=== PATIENT | male | born 1970 | race Caucasian/White ===

== ENCOUNTER 2021-03-08 06:35 | Day surgery (SDC) | payer MEDICARE ==
[2021-03-08] MEDS ORDERED: Depo-Medrol 40 MG/ML IM ONE (06:36)
[2021-03-08] MEDS ORDERED: LIDOCAINE HCL 2% 100 MG/5 ML IJ ONE (06:36)
[2021-03-08] MEDS ORDERED: Ketamine HCl 50 MG/ML ONE (08:48)
[2021-03-08] MEDS ORDERED: DIPRIVAN 200 MG/20 ML IV ONE (08:48)
--- NOTE | 2021-03-08 10:24 | XRAY ---
Indication: Bilateral L4-S1 MBB. Intraoperative fluoroscopy provided for 10 seconds. Single digital spot image submitted for interpretation demonstrates posterior needle tips projecting over the expected left and right L4-S1 nerve roots. Correlate with intraoperative findings/report.
[2021-03-08] MEDS ORDERED: Lactated Ringers 1,000 ML IV ONE (10:35)
--- NOTE | 2021-03-08 11:09 | XRAY ---
10 seconds fluoroscopy time in surgery for bilateral L4-S1 MBB.
== END 2021-03-08 09:08 | disposition home or self-care (01) ==
LOC: SDC-PAIN 06:35
PROVIDERS: ATTEND Psychiatry & Neurology Pain Medicine
DX: M47.816 Spondylosis without myelopathy or radiculopathy, lumbar region (principal); E11.9 Type 2 diabetes mellitus without complications; I10 Essential (primary) hypertension; Z79.899 Other long term (current) drug therapy
CPT/HCPCS: 64493; 64494; 72020; 77002; 82947; J1030; J2704

== ENCOUNTER 2021-04-05 06:44 | Day surgery (SDC) | payer MEDICARE ==
[2021-04-05] MEDS ORDERED: LIDOCAINE HCL 2% 100 MG/5 ML IJ ONE (06:45)
[2021-04-05] MEDS ORDERED: DIPRIVAN 200 MG/20 ML IV ONE (08:38)
--- NOTE | 2021-04-05 10:20 | XRAY ---
Indication: Bilateral L4-S1 MBB. Intraoperative fluoroscopy provided for 25 seconds. Single digital spot image submitted for interpretation demonstrates posterior needle tips projecting over the expected left and right L4-S1 nerve roots. Correlate with intraoperative findings/report.
--- NOTE | 2021-04-05 10:55 | XRAY ---
25 seconds fluoroscopy time in surgery for bilateral L4-S1 MBB.
[2021-04-05] MEDS ORDERED: Lactated Ringers 1,000 ML IV ONE (11:19)
== END 2021-04-05 09:08 | disposition home or self-care (01) ==
LOC: SDC-PAIN 06:44
PROVIDERS: ATTEND Psychiatry & Neurology Pain Medicine
DX: M47.816 Spondylosis without myelopathy or radiculopathy, lumbar region (principal); E11.9 Type 2 diabetes mellitus without complications; Z79.899 Other long term (current) drug therapy
CPT/HCPCS: 64493; 64494; 72020; 77002; 82947; J2704

== ENCOUNTER 2021-04-27 08:56 | Day surgery (SDC) | payer MEDICARE ==
[2021-04-27] MEDS ORDERED: Xylocaine 1% Vial 30 ML PF IJ ONE (08:57)
[2021-04-27] MEDS ORDERED: BUPIVACAINE 0.5% VIAL IJ ONE (08:57)
[2021-04-27] MEDS ORDERED: Depo-Medrol 40 MG/ML IM ONE (08:57)
[2021-04-27] MEDS ORDERED: Lactated Ringers 1,000 ML IV ONE (10:41)
[2021-04-27] MEDS ORDERED: DIPRIVAN 200 MG/20 ML IV ONE ×2 (11:09→11:23)
[2021-04-27] MEDS ORDERED: Versed 2 MG/2 ML Injection ONE (11:12)
--- NOTE | 2021-04-28 09:39 | XRAY ---
Indication: Left L4-S1 RFA. Intraoperative fluoroscopy provided for 32 seconds. 3 digital spot image submitted for interpretation demonstrates posterior needle tips projecting over the expected left L4-S1 nerve roots. Correlate with intraoperative findings/report.
--- NOTE | 2021-04-28 10:07 | XRAY ---
32 seconds of fluoroscopy was used in surgery for a left L4-S1 RFA.
== END 2021-04-27 11:43 | disposition home or self-care (01) ==
LOC: SDC-PAIN 08:56
PROVIDERS: ATTEND Psychiatry & Neurology Pain Medicine
DX: M47.816 Spondylosis without myelopathy or radiculopathy, lumbar region (principal); E11.9 Type 2 diabetes mellitus without complications; I10 Essential (primary) hypertension; Z79.899 Other long term (current) drug therapy
CPT/HCPCS: 64635; 64636; 72100; 77002; 82947; J1030; J2001; J2250; J2704

== ENCOUNTER 2021-05-03 09:06 | Day surgery (SDC) | payer MEDICARE ==
[2021-05-03] MEDS ORDERED: Xylocaine 1% Vial 30 ML PF IJ ONE (09:07)
[2021-05-03] MEDS ORDERED: Depo-Medrol 40 MG/ML IM ONE (09:07)
[2021-05-03] MEDS ORDERED: BUPIVACAINE 0.5% VIAL IJ ONE (09:07)
[2021-05-03] MEDS ORDERED: DIPRIVAN 200 MG/20 ML IV ONE ×2 (11:45→11:53)
[2021-05-03] MEDS ORDERED: Lactated Ringers 1,000 ML IV ONE (12:04)
--- NOTE | 2021-05-03 14:04 | XRAY ---
Indication: Right L4-S1 RFA. Intraoperative fluoroscopy provided for 27 seconds. 3 digital spot image submitted for interpretation demonstrates posterior needle tips projecting over the expected right L4-S1 nerve roots. Correlate with intraoperative findings/report.
--- NOTE | 2021-05-03 14:39 | XRAY ---
27 seconds fluoroscopy time in surgery for right L4-S1 RFA.
== END 2021-05-03 12:20 | disposition home or self-care (01) ==
LOC: SDC-PAIN 09:06
PROVIDERS: ATTEND Psychiatry & Neurology Pain Medicine
DX: M47.816 Spondylosis without myelopathy or radiculopathy, lumbar region (principal); E11.9 Type 2 diabetes mellitus without complications; Z79.899 Other long term (current) drug therapy
CPT/HCPCS: 64635; 64636; 72100; 77002; 82947; J1030; J2001; J2704

== ENCOUNTER 2021-05-31 06:24 | Day surgery (SDC) | payer MEDICARE ==
[2021-05-31] MEDS ORDERED: Decadron 4 MG INJ IV ONE (06:25)
[2021-05-31] MEDS ORDERED: LIDOCAINE HCL 2% 100 MG/5 ML IJ ONE (06:25)
[2021-05-31] MEDS ORDERED: Lactated Ringers 1,000 ML IV ONE (08:16)
[2021-05-31] MEDS ORDERED: DIPRIVAN 200 MG/20 ML IV ONE ×2 (08:52→09:03)
--- NOTE | 2021-05-31 10:18 | XRAY ---
Indication: Left C2-C4 MBB. Intraoperative fluoroscopy provided for 38 seconds. 2 digital spot image submitted for interpretation demonstrates posterior needle tips projecting over the expected left C2-C4 nerve roots. Correlate with intraoperative findings/report.
--- NOTE | 2021-05-31 12:12 | XRAY ---
38 seconds fluoroscopy time in surgery for left C2-C4 MBB.
== END 2021-05-31 09:26 | disposition home or self-care (01) ==
LOC: SDC-PAIN 06:24
PROVIDERS: ATTEND Psychiatry & Neurology Pain Medicine
DX: M47.812 Spondylosis without myelopathy or radiculopathy, cervical region (principal); E11.9 Type 2 diabetes mellitus without complications; I10 Essential (primary) hypertension; Z79.899 Other long term (current) drug therapy
CPT/HCPCS: 64490; 64491; 72040; 77002; 82947; J1100; J2704

== ENCOUNTER 2021-09-27 10:49 | Day surgery (SDC) | payer MEDICARE ==
[2021-09-27] MEDS ORDERED: Depo-Medrol 40 MG/ML IM ONE (10:50)
[2021-09-27] MEDS ORDERED: Marcaine Mpf 0.5% Vial 30 Ml IJ ONE (10:50)
[2021-09-27] MEDS ORDERED: Lactated Ringers 1,000 ML IV ONE (10:50)
[2021-09-27] MEDS ORDERED: DIPRIVAN 200 MG/20 ML IV ONE ×2 (12:52→13:29)
[2021-09-27] MEDS ORDERED: Ketamine HCl 50 MG/ML ONE (13:19)
--- NOTE | 2021-09-27 16:08 | XRAY ---
Indication: Left C2-C4 MBB. Intraoperative fluoroscopy provided for 36 seconds. 2 digital spot image submitted for interpretation demonstrates posterior needle tips projecting over the expected left C2-C4 nerve roots. Correlate with intraoperative findings/report.
--- NOTE | 2021-09-27 16:31 | XRAY ---
36 seconds of fluoroscopy was used in surgery for a left C2-C4 MBB.
== END 2021-09-27 13:46 | disposition home or self-care (01) ==
LOC: SDC-PAIN 10:49
PROVIDERS: ATTEND Psychiatry & Neurology Pain Medicine
DX: M47.812 Spondylosis without myelopathy or radiculopathy, cervical region (principal); E11.9 Type 2 diabetes mellitus without complications; Z79.899 Other long term (current) drug therapy
CPT/HCPCS: 64490; 64491; 72040; 77002; 82947; J1030; J2704

== ENCOUNTER 2021-11-08 09:39 | Day surgery (SDC) | payer MEDICARE ==
[2021-11-08] MEDS ORDERED: XYLOCAINE-MPF 1% 5ML SDV IJ ONE (09:40)
[2021-11-08] MEDS ORDERED: Decadron 4 MG INJ IV ONE (09:40)
[2021-11-08] MEDS ORDERED: BUPIVACAINE 0.5% VIAL IJ ONE (09:40)
[2021-11-08] MEDS ORDERED: Lactated Ringers 1,000 ML IV ONE (10:31)
[2021-11-08] MEDS ORDERED: DIPRIVAN 200 MG/20 ML IV ONE ×2 (11:08→11:14)
--- NOTE | 2021-11-08 12:40 | XRAY ---
Indication: Left C2-C4 RFA. Intraoperative fluoroscopy provided for 42 seconds. 5 digital spot image submitted for interpretation demonstrates posterior needle tips projecting over the left C2-C4 nerve roots. Correlate with intraoperative findings/report.
--- NOTE | 2021-11-08 12:41 | XRAY ---
42 seconds of fluoroscopy was used in surgery for a left C2-C4 RFA.
== END 2021-11-08 11:45 | disposition home or self-care (01) ==
LOC: SDC-PAIN 09:39
PROVIDERS: ATTEND Psychiatry & Neurology Pain Medicine
DX: M47.812 Spondylosis without myelopathy or radiculopathy, cervical region (principal); E11.9 Type 2 diabetes mellitus without complications; Z79.899 Other long term (current) drug therapy
CPT/HCPCS: 01939; 64633; 64634; 72040; 77002; 82947; J1100; J2704

== ENCOUNTER 2021-12-13 09:49 | Day surgery (SDC) | payer MEDICARE ==
[2021-12-13] MEDS ORDERED: Decadron 4 MG INJ IV ONE (09:50)
[2021-12-13] MEDS ORDERED: LIDOCAINE HCL 2% 100 MG/5 ML IJ ONE (09:50)
[2021-12-13] MEDS ORDERED: Pepcid 20 MG VIAL IV SCH (10:21)
[2021-12-13] MEDS ORDERED: Pepcid 20 MG VIAL IV ONE (10:22)
[2021-12-13] MEDS ORDERED: DIPRIVAN 200 MG/20 ML IV ONE (11:19)
[2021-12-13] MEDS ORDERED: Lactated Ringers 1,000 ML IV ONE (11:28)
--- NOTE | 2021-12-13 12:11 | XRAY ---
Indication: Right C2-C4 MBB. Intraoperative fluoroscopy provided for 22 seconds. 2 digital spot image submitted for interpretation demonstrates posterior needle tips projecting over the expected right C2-C4 nerve roots. Correlate with intraoperative findings/report.
--- NOTE | 2021-12-13 12:25 | XRAY ---
22 seconds of fluoroscopy was used in surgery for a right C2-C4 MBB.
== END 2021-12-13 11:43 | disposition home or self-care (01) ==
LOC: SDC-PAIN 09:49
PROVIDERS: ATTEND Psychiatry & Neurology Pain Medicine
DX: M47.812 Spondylosis without myelopathy or radiculopathy, cervical region (principal); E11.9 Type 2 diabetes mellitus without complications; Z79.899 Other long term (current) drug therapy
CPT/HCPCS: 64490; 64491; 72040; 77002; 82947; J1100; J2704

== ENCOUNTER 2023-05-08 07:42 | Day surgery (SDC) | payer MEDICARE ==
[2023-05-08] MEDS ORDERED: Depo-Medrol 40 MG/ML IM ONE (07:43)
[2023-05-08] MEDS ORDERED: LIDOCAINE HCL 1% 50 MG/5 ML VL PF IJ ONE (07:43)
[2023-05-08] MEDS ORDERED: BUPIVACAINE 0.5% VIAL IJ ONE (07:43)
[2023-05-08] MEDS ORDERED: Pepcid 20 MG VIAL IV ONE (08:35)
[2023-05-08] MEDS ORDERED: DIPRIVAN 200 MG/20 ML IV ONE (09:42)
[2023-05-08] MEDS ORDERED: Versed 2 MG/2 ML Injection ONE (09:43)
[2023-05-08] MEDS ORDERED: SUBLIMAZE 100 MCG/2 ML ONE (09:49)
--- NOTE | 2023-05-08 10:22 | XRAY ---
Indication: Right L4-S1 RFA. Intraoperative fluoroscopy provided for 26 seconds. 3 digital spot image submitted for interpretation demonstrates posterior needle tips projecting over expected right L4-S1 nerve roots. Correlate with intraoperative findings/report.
--- NOTE | 2023-05-08 10:39 | XRAY ---
26 seconds of fluoroscopy was used in surgery for a right L4-S1 RFA.
[2023-05-08] MEDS ORDERED: Lactated Ringers 1,000 ML IV ONE (12:25)
== END 2023-05-08 10:22 | disposition home or self-care (01) ==
LOC: SDC-PAIN 07:42
PROVIDERS: ATTEND Psychiatry & Neurology Pain Medicine
DX: M47.816 Spondylosis without myelopathy or radiculopathy, lumbar region (principal); E11.9 Type 2 diabetes mellitus without complications
CPT/HCPCS: 64635; 64636; 72100; 77002; 82947; J1030; J2001; J2250; J2704; J3010

== ENCOUNTER 2023-05-15 08:00 | Day surgery (SDC) | payer MEDICARE ==
[2023-05-15] MEDS ORDERED: LIDOCAINE HCL 1% 50 MG/5 ML VL PF IJ ONE (08:01)
[2023-05-15] MEDS ORDERED: BUPIVACAINE 0.5% VIAL IJ ONE (08:01)
[2023-05-15] MEDS ORDERED: Depo-Medrol 40 MG/ML IM ONE (08:01)
[2023-05-15] MEDS ORDERED: Pepcid 20 MG VIAL IV ONE (09:17)
[2023-05-15] MEDS ORDERED: Reglan 10 MG/2 ML ONE (09:18)
[2023-05-15] MEDS ORDERED: DIPRIVAN 200 MG/20 ML IV ONE ×2 (10:50→11:06)
[2023-05-15] MEDS ORDERED: Versed 2 MG/2 ML Injection ONE ×2 (11:18→12:01)
[2023-05-15] MEDS ORDERED: Lactated Ringers 1,000 ML IV ONE (15:01)
--- NOTE | 2023-05-15 15:13 | XRAY ---
Indication: Left L4-S1 RFA. Intraoperative fluoroscopy provided for 16 seconds. 3 digital spot images submitted for interpretation demonstrates posterior needle tips projecting over the expected left L4-S1 nerve roots. Correlate with intraoperative findings/report.
--- NOTE | 2023-05-15 16:46 | XRAY ---
16 seconds of fluoroscopy was used in surgery for a left L4-S1 RFA.
== END 2023-05-15 11:28 | disposition home or self-care (01) ==
LOC: SDC-PAIN 08:00
PROVIDERS: ATTEND Psychiatry & Neurology Pain Medicine
DX: M47.816 Spondylosis without myelopathy or radiculopathy, lumbar region (principal); E11.9 Type 2 diabetes mellitus without complications
CPT/HCPCS: 64635; 64636; 72100; 77002; 82947; J1030; J2001; J2250; J2704

== ENCOUNTER 2023-10-16 06:53 | Day surgery (SDC) | payer MEDICARE ==
[2023-10-16] MEDS ORDERED: LIDOCAINE HCL 1% 50 MG/5 ML VL PF IJ ONE (06:54)
[2023-10-16] MEDS ORDERED: Decadron 4 MG INJ IV ONE (06:54)
[2023-10-16] MEDS ORDERED: BUPIVACAINE 0.5% VIAL IJ ONE (06:54)
[2023-10-16] MEDS ORDERED: DIPRIVAN 200 MG/20 ML IV ONE (08:13)
[2023-10-16] MEDS ORDERED: Lactated Ringers 1,000 ML IV ONE (09:25)
--- NOTE | 2023-10-16 10:08 | XRAY ---
Indication: Left C2-C4 RFA. Intraoperative fluoroscopy provided for 34 seconds. 3 digital spot images submitted for interpretation demonstrates posterior needle tips projecting over the expected left C2-C4 nerve roots. Correlate with intraoperative findings/report.
--- NOTE | 2023-10-16 10:54 | XRAY ---
34 seconds of fluoroscopy was used in surgery for a left C2-C4 RFA.
== END 2023-10-16 09:00 | disposition home or self-care (01) ==
LOC: SDC-PAIN 06:53
PROVIDERS: ATTEND Psychiatry & Neurology Pain Medicine
DX: M47.812 Spondylosis without myelopathy or radiculopathy, cervical region (principal); E11.9 Type 2 diabetes mellitus without complications
CPT/HCPCS: 64635; 64636; 72040; 77002; 82947; J1100; J2001; J2704

== ENCOUNTER 2023-11-14 06:59 | Day surgery (SDC) | payer MEDICARE ==
[2023-11-14] MEDS ORDERED: BUPIVACAINE 0.5% VIAL IJ ONE (07:00)
[2023-11-14] MEDS ORDERED: Decadron 4 MG INJ IV ONE (07:00)
[2023-11-14] MEDS ORDERED: Pepcid 20 MG VIAL IV ONE (07:54)
[2023-11-14] MEDS ORDERED: Reglan 10 MG/2 ML ONE (07:54)
[2023-11-14] MEDS ORDERED: DIPRIVAN 200 MG/20 ML IV ONE (08:26)
--- NOTE | 2023-11-14 09:22 | XRAY ---
20 seconds of fluoroscopy was used in surgery for a right C2-C4 MBB.
[2023-11-14] MEDS ORDERED: Lactated Ringers 1,000 ML IV ONE (10:05)
--- NOTE | 2023-11-14 10:06 | XRAY ---
Indication: Right C2-C4 MBB. Intraoperative fluoroscopy provided for 20 seconds. 2 digital spot images submitted for interpretation demonstrates posterior needle tips projecting over the expected right C2-C4 nerve roots. Correlate with intraoperative findings/report.
== END 2023-11-14 08:56 | disposition home or self-care (01) ==
LOC: SDC-PAIN 06:59
PROVIDERS: ATTEND Obstetrics & Gynecology Gynecologic Oncology
DX: M47.812 Spondylosis without myelopathy or radiculopathy, cervical region (principal); E11.9 Type 2 diabetes mellitus without complications
CPT/HCPCS: 64490; 64491; 72040; 77002; 82947; J1100; J2704

== ENCOUNTER 2023-12-25 07:14 | Day surgery (SDC) | payer MEDICARE ==
[2023-12-25] MEDS ORDERED: BUPIVACAINE 0.5% VIAL IJ ONE (07:15)
[2023-12-25] MEDS ORDERED: LIDOCAINE HCL 1% AMPUL 5 ML IJ ONE (07:15)
[2023-12-25] MEDS ORDERED: Decadron 4 MG INJ IV ONE (07:15)
[2023-12-25] MEDS ORDERED: Depo-Medrol 40 MG/ML IM ONE (07:15)
[2023-12-25] MEDS ORDERED: DIPRIVAN 200 MG/20 ML IV ONE ×2 (08:53→09:00)
[2023-12-25] MEDS ORDERED: MORPHINE SULFATE 2 MG INJ ONE (09:25)
--- NOTE | 2023-12-25 12:17 | XRAY ---
Indication: Right C2-C4 RFA. Intraoperative fluoroscopy provided for 23 seconds. 7 digital spot image submitted for interpretation demonstrates posterior needle tips projecting over the expected right C2-C4 nerve roots. Correlate with intraoperative findings/report.
--- NOTE | 2023-12-25 12:36 | XRAY ---
23 seconds of fluoroscopy was used in surgery for a right C2-C4 RFA.
== END 2023-12-25 10:05 | disposition home or self-care (01) ==
LOC: SDC-PAIN 07:14
PROVIDERS: ATTEND Psychiatry & Neurology Pain Medicine
DX: M47.812 Spondylosis without myelopathy or radiculopathy, cervical region (principal); E11.9 Type 2 diabetes mellitus without complications
CPT/HCPCS: 64633; 64634; 72040; 77002; 82947; J1100; J2270; J2704

== ENCOUNTER 2024-01-22 06:48 | Day surgery (SDC) | payer MEDICARE ==
[2024-01-22] MEDS ORDERED: Sodium Chloride 0.9(Preservative Free) 10 ML IJ ONE (06:49)
[2024-01-22] MEDS ORDERED: LIDOCAINE HCL 1% AMPUL 5 ML IJ ONE (06:49)
[2024-01-22] MEDS ORDERED: Decadron 4 MG INJ IV ONE (06:49)
[2024-01-22] MEDS ORDERED: DIPRIVAN 200 MG/20 ML IV ONE (08:35)
--- NOTE | 2024-01-22 13:01 | XRAY ---
Indication: Right L4-S1 transforaminal KARTIK. Intraoperative fluoroscopy provided for 27 seconds. 5 digital spot image submitted for interpretation demonstrates posterior needle tips projecting over expected right L4 and L5 nerve roots. Small amount of contrast injected for needle tip placement. Correlate with intraoperative findings/report.
--- NOTE | 2024-01-22 13:03 | XRAY ---
Indication: Right piriformis injection. Intraoperative fluoroscopy provided for 14 seconds. Single digital spot image submitted for interpretation demonstrates posterior needle tip projecting over right piriformis. Small amount of contrast injected for needle tip placement. Correlate with intraoperative findings/report.
--- NOTE | 2024-01-22 13:11 | XRAY ---
14 seconds of fluoroscopy was used in surgery for a right piriformis injection.
--- NOTE | 2024-01-22 13:11 | XRAY ---
27 seconds of fluoroscopy was used in surgery for a right L4-S1 transforaminal KARTIK.
== END 2024-01-22 09:15 | disposition home or self-care (01) ==
LOC: SDC-PAIN 06:48
PROVIDERS: ATTEND Psychiatry & Neurology Pain Medicine
DX: M54.16 Radiculopathy, lumbar region (principal); M79.18 Myalgia, other site; E11.9 Type 2 diabetes mellitus without complications
CPT/HCPCS: 20552; 64483; 64484; 72100; 72170; 77002; 77003; 82947; J1100; J2704; Q9966

== ENCOUNTER 2024-06-25 07:17 | Day surgery (SDC) | payer MEDICARE ==
[2024-06-25] MEDS ORDERED: LIDOCAINE HCL 1% AMPUL 5 ML IJ ONE (07:18)
[2024-06-25] MEDS ORDERED: Sodium Chloride 0.9(Preservative Free) 10 ML IJ ONE (07:18)
[2024-06-25] MEDS ORDERED: Depo-Medrol 40 MG/ML IM ONE (07:18)
[2024-06-25] MEDS ORDERED: propofoL IV ONE ×2 (08:57→09:02)
[2024-06-25] MEDS ORDERED: Lactated Ringers 1,000 ML IV ONE (10:00)
--- NOTE | 2024-06-25 10:38 | XRAY ---
Indication: Caudal KARTIK. Intraoperative fluoroscopy provided for 34 seconds. 4 digital spot image submitted for interpretation demonstrates caudal needle tip projecting mid sacrum. Small amount of contrast injected for needle tip placement. Correlate with intraoperative findings/report.
--- NOTE | 2024-06-25 10:52 | XRAY ---
34 seconds of fluoroscopy used in surgery for a caudal KARTIK.
== END 2024-06-25 09:38 | disposition home or self-care (01) ==
LOC: SDC-PAIN 07:17
PROVIDERS: ATTEND Psychiatry & Neurology Pain Medicine
DX: M54.16 Radiculopathy, lumbar region (principal); E11.9 Type 2 diabetes mellitus without complications
CPT/HCPCS: 62323; 72220; 82947; J2704; Q9966

== ENCOUNTER 2024-12-02 07:46 | Day surgery (SDC) | payer MEDICARE ==
[2024-12-02] MEDS ORDERED: BUPIVACAINE 0.5% VIAL IJ ONE (07:47)
[2024-12-02] MEDS ORDERED: methylPREDNISolone acetate IM ONE (07:47)
[2024-12-02] MEDS ORDERED: LIDOCAINE HCL 1% 50 MG/5 ML VL IJ ONE (07:47)
[2024-12-02] MEDS ORDERED: Lactated Ringers 1,000 ML IV ONE (09:56)
[2024-12-02] MEDS ORDERED: propofoL IV ONE ×2 (10:09→10:16)
[2024-12-02] MEDS ORDERED: SUBLIMAZE 100 MCG/2 ML ONE (10:16)
--- NOTE | 2024-12-02 13:03 | XRAY ---
Indication: Right L4-S1 RFA. Intraoperative fluoroscopy provided for 24 seconds. Single digital spot image submitted for interpretation demonstrates posterior needle tips projecting over expected right L4-S1 nerve roots. Correlate with intraoperative findings/report.
--- NOTE | 2024-12-02 13:07 | XRAY ---
24 seconds of fluoroscopy were used in surgery for a right L4-S1 RFA.
== END 2024-12-02 10:45 | disposition home or self-care (01) ==
LOC: SDC-PAIN 07:46
PROVIDERS: ATTEND Psychiatry & Neurology Pain Medicine
DX: M47.817 Spondylosis without myelopathy or radiculopathy, lumbosacral region (principal); E11.9 Type 2 diabetes mellitus without complications

== ENCOUNTER 2024-12-16 07:42 | Day surgery (SDC) | payer MEDICARE ==
[2024-12-16] MEDS ORDERED: methylPREDNISolone acetate IM ONE (07:43)
[2024-12-16] MEDS ORDERED: LIDOCAINE HCL 1% 50 MG/5 ML VL IJ ONE (07:43)
[2024-12-16] MEDS ORDERED: BUPIVACAINE 0.5% VIAL IJ ONE (07:43)
[2024-12-16] MEDS ORDERED: propofoL IV ONE (10:08)
[2024-12-16] MEDS ORDERED: Lactated Ringers 1,000 ML IV ONE (10:29)
--- NOTE | 2024-12-16 12:28 | XRAY ---
Indication: Left L4-S1 RFA. Intraoperative fluoroscopy provided for 17 seconds. 4 digital spot image submitted for interpretation demonstrates posterior needle tips projecting over expected left L4-S1 nerve roots. Correlate with intraoperative findings/report.
--- NOTE | 2024-12-16 12:48 | XRAY ---
17 seconds of fluoroscopy was used in surgery for a left L4-S1 RFA.
== END 2024-12-16 10:48 | disposition home or self-care (01) ==
LOC: SDC-PAIN 07:42
PROVIDERS: ATTEND Psychiatry & Neurology Pain Medicine
DX: M47.817 Spondylosis without myelopathy or radiculopathy, lumbosacral region (principal); E11.9 Type 2 diabetes mellitus without complications